=== PATIENT | female | born 1965 | race Caucasian/White ===

== ENCOUNTER 2021-03-09 16:39 | Observation (INO) ==
[2021-03-09] MEDS ORDERED: Isovue-370 500 ML BOTTLE IVP ONE (20:05)
[2021-03-09 20:47] LABS: Basophils % 0.3 %; Eosinophils % 0.5 %; Hematocrit 44.7 % (35.3-44.9); Immature Granulocytes % 0.5 % (0-4); Lymphocytes # 2.5 K/mcL (0.6-4.6); Lymphocytes % 42.7 %; Mean Corpuscular HGB Conc 31.3 g/dL (31.6-35.5); Mean Corpuscular Hemoglobin 28.2 pg (28.0-33.3); Mean Corpuscular Volume 90.1 fL (83.0-100.0); Monocytes # 0.5 K/mcL (0.0-1.3); Monocytes % 7.8 %; Neutrophils # 2.8 K/mcL (1.6-8.9); Platelet Count 203 K/mcL (140-400); Red Blood Count 4.96 M/mcL (3.82-4.97); Red Cell Distribution Width 13.9 % (11.5-14.5); Segmented Neutrophils % 48.2 %; White Blood Count 5.9 K/mcL (4.3-11.1)
[2021-03-09 21:08] LABS: Alanine Aminotransferase 29 Units/L (7-52); Albumin 3.8 g/dL (3.5-5.7); Alkaline Phosphatase 43 Units/L (34-104); Aspartate Amino Transferase 26 Units/L (13-39); BUN/Creatinine Ratio 17 (6-26); Bilirubin,Total 0.4 mg/dL (0.3-1.0); Blood Urea Nitrogen 9 mg/dL (6-20); Calcium 8.8 mg/dL (8.6-10.3); Carbon Dioxide 32 mEq/L (23-29); Chloride 100 mEq/L (98-107); Globulin 3.9 g/dL (2.4-3.5); Glucose 83 mg/dL (70-105); Osmolality,Calculated 288 (280-300); Potassium 3.7 mEq/L (3.5-5.1); Sodium 140 mEq/L (136-145); Total Protein 7.7 g/dL (6.4-8.9); Troponin I < 0.03 ng/mL (< 0.04); eGFR For African Americans > 60 (> 60); eGFR For Non-African Americans > 60 (> 60)
[2021-03-09 21:46] LABS: ABG Base Excess 6 mEq/L (-2 to 3); ABG HCO3 33 mEq/L (21-27); ABG Oxygen Saturation 97 % (95-98); ABG PCO2 53 mmHg (35-45); ABG PO2 90 mmHg (85-104); ABG TCO2 35 mEq/L (20-26)
[2021-03-09 23:08] LABS: Influenza A PCR Negative (Negative); Influenza B PCR Negative (Negative); Resp. Syncytial Virus PCR Negative (Negative)
[2021-03-09 23:18] LABS: SARS-CoV-2 by PCR (In House) Positive (Negative)
[2021-03-10] MEDS ORDERED: Acetaminophen 325 MG TABLET PO PRN (00:27)
[2021-03-10] MEDS ORDERED: Melatonin 3 MG TABLET PO PRN (00:27)
[2021-03-10] MEDS ORDERED: Naloxone 0.4 MG/ML INJ IVP PRN (00:27)
[2021-03-10] MEDS ORDERED: Ondansetron 4 MG/2 ML VIAL IVP PRN (00:27)
[2021-03-10] MEDS ORDERED: Ipratropium 1 PUFF INHALER IH PRN (00:29)
[2021-03-10 02:31] LABS: Hemoglobin 13.1 g/dL (11.5-15.4); Mean Corpuscular HGB Conc 31.2 g/dL (31.6-35.5); Mean Corpuscular Hemoglobin 28.1 pg (28.0-33.3); Mean Corpuscular Volume 89.9 fL (83.0-100.0); Mean Platelet Volume 10.3 fL (9.4-12.4); Platelet Count 192 K/mcL (140-400); Red Blood Count 4.67 M/mcL (3.82-4.97); Red Cell Distribution Width 14.1 % (11.5-14.5); White Blood Count 7.4 K/mcL (4.3-11.1)
[2021-03-10 02:51] LABS: BUN/Creatinine Ratio 17 (6-26); Blood Urea Nitrogen 8 mg/dL (6-20); C-Reactive Protein 64 mg/L (Less than 10); Calcium 8.2 mg/dL (8.6-10.3); Carbon Dioxide 31 mEq/L (23-29); Chloride 100 mEq/L (98-107); Glucose 98 mg/dL (70-105); Lactate Dehydrogenase 209 Units/L (140-271); Osmolality,Calculated 284 (280-300); Potassium 3.6 mEq/L (3.5-5.1); Sodium 138 mEq/L (136-145); eGFR For African Americans > 60 (> 60); eGFR For Non-African Americans > 60 (> 60)
[2021-03-10] MEDS ORDERED: Remdesivir 200 MG in 0.9 % Sodium Chloride 100 ML IVPB ONE (06:00)
[2021-03-10] MEDS: *HR* Enoxaparin 40 MG/0.4 ML SYRINGE SQ SCH (06:28)
[2021-03-11 02:41] LABS: Albumin 3.5 g/dL (3.5-5.7); Bilirubin,Direct 0.1 mg/dL (0.0-0.2); Bilirubin,Indirect 0.2 mg/dL (0.0-1.0); Bilirubin,Total 0.3 mg/dL (0.3-1.0); Globulin 3.4 g/dL (2.4-3.5); Total Protein 6.9 g/dL (6.4-8.9)
[2021-03-11] MEDS: *HR* Enoxaparin 40 MG/0.4 ML SYRINGE SQ SCH (05:15)
[2021-03-11] MEDS ORDERED: Remdesivir 100 MG in 0.9 % Sodium Chloride 100 ML IVPB SCH (06:00)
[2021-03-11 06:40] VITALS: TEMP 98
[2021-03-11 10:49] VITALS: BP 116/68; PULSE 75
[2021-03-11 13:51] VITALS: O2SAT 95
[2021-03-12 00:12] LABS: Ferritin 190 ng/mL (10-120)
== END 2021-03-11 14:15 | disposition home or self-care (01) ==
LOC: 3BNU 16:39 → EMEROOARM 16:39 → 3BNU 23:54
PROVIDERS: ADMIT Internal Medicine; ATTEND Internal Medicine